=== PATIENT | female | born 1955 | race Caucasian/White ===

== ENCOUNTER 2018-07-12 14:09 | Outpatient (CLI) | payer BC | END 2018-07-12 14:10 | disposition home or self-care (01) | LOC: BICMAMMO 14:09 | PROVIDERS: ATTEND Internal Medicine Rheumatology | DX: M81.0 Age-related osteoporosis without current pathological fracture (principal) | CPT/HCPCS: 77080 ==

== ENCOUNTER 2020-05-28 14:20 | Outpatient (CLI) | payer BC ==
--- NOTE | 2020-05-28 14:51 | BD ---
EXAM: DEXA bone density examination HISTORY: 64-year-old postmenopausal female for screening COMPARISON: None FINDINGS: L1--bone mineral density 0.718 g/sq cm; T score -2.5 L2--bone mineral density 0.713 g/sq cm; T score -2.9 L3--bone mineral density 0.675 g/sq cm; T score -3.7 L4--bone mineral density 0.636 g/sq cm; T score -3.9 Total L1-L4--bone mineral density 0.684 g/sq cm; T score -3.3 Left femoral neck--bone mineral density0.666; T score -1.6 Total proximal left femur--bone mineral density 0.786; T score -1.3 IMPRESSION: Osteoporosis.
== END 2020-05-28 14:21 | disposition home or self-care (01) ==
LOC: BICMAMMO 14:20
PROVIDERS: ATTEND Obstetrics & Gynecology
DX: M81.0 Age-related osteoporosis without current pathological fracture (principal)
CPT/HCPCS: 77080

== ENCOUNTER 2022-12-11 09:44 | Outpatient (CLI) | payer BC | END 2022-12-11 09:45 | disposition home or self-care (01) | LOC: BICMAMMO 09:44 | PROVIDERS: ATTEND Obstetrics & Gynecology | DX: M81.0 Age-related osteoporosis without current pathological fracture (principal) | CPT/HCPCS: 77080 ==